=== PATIENT | female | born 1990 | race Caucasian/White ===

== ENCOUNTER 2016-10-08 16:38 | Emergency (ER) | payer BC, OTHER ==
[~2016-10-08] VITALS: Ht 167.6 cm; Wt 109.4 kg
[~2016-10-08 16:38] MED LIST: HYDROCODON-ACE1 EA10 PO; MICROGESTIN1 EACH PO; OMEPRAZOLE20 MG PO; ZOLOFT25 MG PO
[2016-10-08] MEDS ORDERED: ZOFRAN ODT4 MG PO (19:02)
== END 2016-10-08 19:10 | disposition home or self-care (01) ==
LOC: ED 16:38
DX: K52.9 Noninfective gastroenteritis and colitis, unspecified (principal); Z79.899 Other long term (current) drug therapy
CPT/HCPCS: 80053; 82150; 84702; 85025; 96361; 96374; 99283; J7030